=== PATIENT | male | born 1995 | race African-American/Black ===

== ENCOUNTER 2017-01-23 06:16 | Emergency (ER) | payer OTHER, SELFPAY ==
[2017-01-23] MEDS ORDERED: Dexamethasone 10 MG/ML VIAL ONE (06:35)
[2017-01-23] MEDS ORDERED: Bicillin LA 1.2 MILLION UNITS/2 ML SYRINGE ONE (06:35)
== END 2017-01-23 07:05 | disposition home or self-care (01) ==
LOC: ERS 06:16
DX: J02.9 Acute pharyngitis, unspecified (principal); F17.210 Nicotine dependence, cigarettes, uncomplicated
CPT/HCPCS: 96372; J0561; J1100

== ENCOUNTER 2017-10-03 11:35 | Emergency (ER) | payer SELFPAY ==
[2017-10-03 12:33] LABS: #Eosinphils 0.1 thou/uL (0.0-0.7); #Monocytes 0.6 thou/uL (0.11-0.59); #Neutrophils 3.6 thou/uL (1.40-6.50); %Basophils 0.4 % (0.0-1.0); %Eosinophils 2.2 % (0.0-10.0); %Lymphocytes 18.6 % (21.0-51.0); %Monocytes 11.8 % (0.0-10.0); %Neutrophils 67.1 % (42.0-75.0); Hemoglobin 15.5 g/dL (14.0-18.0); Mean Corpuscular Volume 88.3 fL (78.0-98.0); Mean Platelet Volume 7.1 fL (7.4-10.4); Platelet Count 196 thou/uL (130-400); RBC Distribution Width 11.6 % (11.5-14.5); Red Blood Cell (RBC) Count 5.16 mill/uL (4.70-6.10); White Blood Cell (WBC) Count 5.4 thou/uL (4.8-10.8)
[2017-10-03 12:58] LABS: ALT (SGPT) 13 U/L (8-55); AST (SGOT) 18 U/L (5-34); Albumin 4.1 g/dL (3.5-5.0); Alkaline Phosphatase 49 U/L (40-150); Anion Gap 12 mmol/L (10-20); BUN (Urea Nitrogen) 12 mg/dL (8.9-20.6); Bilirubin, Total 0.8 mg/dL (0.2-1.2); CK (CPK) 238 U/L (30-200); Calc. Creatinine Clearance 0 mL/min (70-130); Calcium 8.9 mg/dL (7.8-10.44); Carbon Dioxide 25 mmol/L (22-29); Chloride 107 mmol/L (98-107); Estimated GFR-MDRD Greater than 90; Globulin 2.7 g/dL (2.4-3.5); Glucose 95 mg/dL (70-105); Lipase 13 U/L (8-78); Potassium 3.7 mmol/L (3.5-5.1); Protein, Total 6.8 g/dL (6.0-8.3); Sodium 140 mmol/L (136-145)
--- NOTE | 2017-10-03 12:58 | RAD ---
TWO VIEWS CHEST: Comparison: None. History: Chest pain, shortness of breath for three weeks. FINDINGS: Two views of the chest show normal sized cardiomediastinal silhouette. There is no evidence of consol idation, mass, or pleural effusion. The bones are unremarkable. IMPRESSION: No evidence of acute cardiopulmonary disease. POS: [facility]
[2017-10-03 13:03] LABS: CKMB 1.5 ng/mL (0-6.6); Troponin I Less than 0.010 ng/mL (< 0.028)
== END 2017-10-03 13:34 | disposition home or self-care (01) ==
LOC: ERS 11:35
DX: K21.9 Gastro-esophageal reflux disease without esophagitis (principal); Z71.6 Tobacco abuse counseling; F17.210 Nicotine dependence, cigarettes, uncomplicated
CPT/HCPCS: 71046; 80053; 82553; 83690; 83880; 84484; 85025; 93005

== ENCOUNTER 2018-02-04 18:47 | Emergency (ER) | payer SELFPAY ==
[2018-02-04] MEDS ORDERED: Ondansetron ODT 4 MG TAB ONE (19:46)
[2018-02-04 20:06] LABS: #Basophils 0.1 thou/uL (0.0-0.2); #Eosinphils 0.3 thou/uL (0.0-0.7); #Monocytes 0.5 thou/uL (0.11-0.59); #Neutrophils 2.9 thou/uL (1.40-6.50); %Basophils 1.1 % (0.0-1.0); %Eosinophils 4.8 % (0.0-10.0); %Lymphocytes 34.1 % (21.0-51.0); %Monocytes 9.1 % (0.0-10.0); %Neutrophils 50.9 % (42.0-75.0); Hemoglobin 16.6 g/dL (14.0-18.0); Mean Corpuscular HGB CONC 33.3 g/dL (32.0-36.0); Mean Corpuscular Hemoglobin 29.5 pg (27.0-31.0); Mean Corpuscular Volume 88.6 fL (78.0-98.0); Mean Platelet Volume 7.1 fL (7.4-10.4); Platelet Count 254 thou/uL (130-400); RBC Distribution Width 11.8 % (11.5-14.5); Red Blood Cell (RBC) Count 5.62 mill/uL (4.70-6.10); White Blood Cell (WBC) Count 5.7 thou/uL (4.8-10.8)
[2018-02-04 20:24] LABS: ALT (SGPT) 23 U/L (8-55); AST (SGOT) 20 U/L (5-34); Albumin 3.5 g/dL (3.5-5.0); Alkaline Phosphatase 42 U/L (40-150); Anion Gap 10 mmol/L (10-20); BUN (Urea Nitrogen) 13 mg/dL (8.9-20.6); Bilirubin, Total 0.2 mg/dL (0.2-1.2); Calc. Creatinine Clearance 0 mL/min (70-130); Calcium 8.1 mg/dL (7.8-10.44); Carbon Dioxide 27 mmol/L (22-29); Chloride 107 mmol/L (98-107); Estimated GFR-MDRD Greater than 90; Globulin 2.3 g/dL (2.4-3.5); Glucose 80 mg/dL (70-105); Lipase 18 U/L (8-78); Potassium 4.1 mmol/L (3.5-5.1); Protein, Total 5.8 g/dL (6.0-8.3); Sodium 140 mmol/L (136-145)
== END 2018-02-04 20:57 | disposition home or self-care (01) ==
LOC: ERS 18:47
DX: R11.10 Vomiting, unspecified (principal); F17.210 Nicotine dependence, cigarettes, uncomplicated
CPT/HCPCS: 36415; 80053; 83690; 85025; 99284; Q0162

== ENCOUNTER 2018-05-13 12:11 | Emergency (ER) | payer SELFPAY ==
[2018-05-13] MEDS ORDERED: Azithromycin 250 MG TAB ONE (12:45)
[2018-05-13] MEDS ORDERED: cefTRIAXone\\ROCEPHIN 250 MG VIAL ONE (12:45)
[2018-05-13] MEDS ORDERED: Lidocaine 1% PF 5 ML VIAL ONE (12:45)
== END 2018-05-13 13:05 | disposition home or self-care (01) ==
LOC: ERS 12:11
DX: A64 Unspecified sexually transmitted disease (principal); F17.210 Nicotine dependence, cigarettes, uncomplicated
CPT/HCPCS: 96372; J0696; J2001

== ENCOUNTER 2018-10-12 03:07 | Emergency (ER) | payer SELFPAY ==
[2018-10-12 03:38] LABS: Bilirubin Negative (Negative); Blood, Urine Negative (Negative); Glucose, Urine (Dipstick) Negative (Negative); Leukocyte Negative (Negative); Nitrite Negative (Negative); Protein, Urine (Dipstick) 30 mg/dL (Neg-Trace)
[2018-10-12 03:42] LABS: Clarity Clear (Clear)
[2018-10-12 03:48] LABS: Bacteria/HPF 1+ HPF (None Seen); RBC/HPF 0-3 HPF (0-3)
[2018-10-12 03:51] LABS: Sperm/HPF Rare HPF (None Seen)
[2018-10-15 01:09] LABS: Chlam.trachomatis by PCR,Urine Not Detected (NotDetected)
== END 2018-10-12 06:20 | disposition home or self-care (01) ==
LOC: ERS 03:07
DX: K59.00 Constipation, unspecified (principal); M54.9 Dorsalgia, unspecified; F17.210 Nicotine dependence, cigarettes, uncomplicated
CPT/HCPCS: 81003; 81015; 87491; 87591; 99283

== ENCOUNTER 2018-10-22 08:02 | Emergency (ER) | payer SELFPAY | END 2018-10-22 08:36 | disposition home or self-care (01) | LOC: ERS 08:02 | DX: R59.9 Enlarged lymph nodes, unspecified (principal); F17.210 Nicotine dependence, cigarettes, uncomplicated | CPT/HCPCS: 99281 ==

== ENCOUNTER 2018-10-23 11:25 | Emergency (ER) | payer SELFPAY | END 2018-10-23 12:56 | disposition home or self-care (01) | LOC: ERS 11:25 | DX: L02.214 Cutaneous abscess of groin (principal); F17.210 Nicotine dependence, cigarettes, uncomplicated ==

== ENCOUNTER 2019-02-10 17:08 | Emergency (ER) | payer SELFPAY | END 2019-02-10 19:00 | disposition left against medical advice (07) | LOC: ERS 17:08 | DX: Z53.21 Procedure and treatment not carried out due to patient leaving prior to being seen by health care provider (principal) ==

== ENCOUNTER 2019-04-16 16:36 | Emergency (ER) | payer SELFPAY | END 2019-04-16 17:25 | disposition home or self-care (01) | LOC: ERS 16:36 | DX: J11.1 Influenza due to unidentified influenza virus with other respiratory manifestations (principal); F17.210 Nicotine dependence, cigarettes, uncomplicated | CPT/HCPCS: 99283 ==

== ENCOUNTER 2019-05-07 14:30 | Emergency (ER) | payer SELFPAY ==
[2019-05-07] MEDS ORDERED: Ondansetron ODT 4 MG TAB ONE (15:10)
== END 2019-05-07 16:27 | disposition home or self-care (01) ==
LOC: ERS 14:30
DX: R11.2 Nausea with vomiting, unspecified (principal); R19.7 Diarrhea, unspecified; F17.210 Nicotine dependence, cigarettes, uncomplicated
CPT/HCPCS: 99283; Q0162

== ENCOUNTER 2020-09-03 04:16 | Emergency (ER) | payer OTHER, SELFPAY | END 2020-09-03 04:39 | LOC: ERS 04:16 | DX: R04.0 Epistaxis (principal); V89.2XXA Person injured in unspecified motor-vehicle accident, traffic, initial encounter; F17.210 Nicotine dependence, cigarettes, uncomplicated | CPT/HCPCS: 99283 ==

== ENCOUNTER 2021-08-29 02:01 | Emergency (ER) | payer OTHER, SELFPAY ==
[2021-08-29] MEDS ORDERED: Acetaminophen 500 MG TAB ONE (02:49)
== END 2021-08-29 02:52 | disposition home or self-care (01) ==
LOC: ERS 02:01
DX: S09.21XA Traumatic rupture of right ear drum, initial encounter (principal); H60.91 Unspecified otitis externa, right ear; W22.8XXA Striking against or struck by other objects, initial encounter
CPT/HCPCS: 99282